=== PATIENT | female | born 1955 | race Caucasian/White ===

== ENCOUNTER → 2020-12-03 | Outpatient (CLI) | payer OTHER ==
[~2020-12-03] MED LIST: ATOR40TA70 PO; LEVO175C2 PO
--- NOTE | 2020-12-03 08:51 | Diagnostic Imaging Report ---
PROCEDURE: US Gallbladder. TECHNIQUE: Multiple real-time grayscale images were obtained over the right upper quadrant in various projections. INDICATION: Epigastric pain, nausea and vomiting. FINDINGS: The liver is normal in size without focal lesions. No biliary duct dilatation. Common bile duct measures 3 mm. There is no cholelithiasis, gallbladder wall thickening or pericholecystic fluid. Pancreas is unremarkable. Aorta is nonaneurysmal. IVC is patent. Right kidney is normal. No ascites. IMPRESSION: Unremarkable right quadrant ultrasound. Dictated by: Dictated on workstation # [id number]
== END ==
LOC: RAD 08:30
PROVIDERS: ATTEND Surgery
DX: R10.11 Right upper quadrant pain (principal); R10.13 Epigastric pain; R11.2 Nausea with vomiting, unspecified
CPT/HCPCS: 76705

== ENCOUNTER 2020-12-06 05:33 | Outpatient (RCR) | payer OTHER ==
[~2020-12-06] VITALS: Ht 149.9 cm; Wt 55.4 kg
[2020-12-08] MEDS ORDERED: PANT40TA2 PO (10:17)
== END 2020-12-06 11:08 | disposition home or self-care (01) ==
LOC: PREOP 05:33
PROVIDERS: ATTEND Surgery
DX: Z01.812 Encounter for preprocedural laboratory examination (principal); Z12.11 Encounter for screening for malignant neoplasm of colon; K21.9 Gastro-esophageal reflux disease without esophagitis; Z20.822 Contact with and (suspected) exposure to COVID-19
CPT/HCPCS: 87635

== ENCOUNTER → 2020-12-08 | Day surgery (SDC) | payer OTHER ==
--- NOTE | 2020-12-01 20:18 | HISTORY AND PHYSICAL ---
DATE OF SERVICE: DATE OF ADMISSION: 12/08/2020. ATTENDING BREAKDOWN PERSON: Rhea Frederick APRN HISTORY OF PRESENT ILLNESS: The patient is a 65-year-old female with multiple gastrointestinal symptoms. She reports that she has had epigastric pain and reflux for many years. She also reports a history of having what she states is ulcers. She is currently not on any acid reduction medications. She states that she also has developed abdominal bloating and distention as well as nausea and vomiting usually after eating meals, especially ones that are high in fat. She has not had a colonoscopy up to this point in her life as well. She also reports that spicy foods as well as acidic foods including red sauces make her epigastric pain worse as well. PAST MEDICAL HISTORY: Peptic ulcer disease, hypercholesterolemia, hypothyroid, psoriatic arthritis, Javid's thyroiditis. PAST SURGICAL HISTORY: Hysterectomy in 1982, total hysterectomy in 1993, total thyroidectomy in 2019. ALLERGIES: PHENOBARBITAL. MEDICATIONS: Levothyroxine, atorvastatin. SOCIAL HISTORY: Positive smoke 40-pack years. Negative alcohol. FAMILY HISTORY: Sister with stroke in her early 40s. VITAL SIGNS: Blood pressure 120/80, current weight 122.1 pounds, height 4 feet 11 inches. REVIEW OF SYSTEMS: Well-nourished female, in no acute distress. She is not experiencing any shortness of breath or difficulty breathing. No chest pain, palpitations, diaphoresis. Intermittent episodes of epigastric pain, abdominal bloating as well as intermittent nausea and vomiting. No hematemesis, no coffee ground emesis. She also has intermittent episodes of diarrhea, usually after meals. No red blood per rectum, no dark tarry stools. No fever, chills, no recent inadvertent weight loss. PHYSICAL EXAMINATION: CHEST: Clear. Good breath sounds bilaterally. HEART: Regular, no murmurs. EXTREMITIES: No lower extremity edema, negative Homans sign. HEENT: No scleral icterus. NECK: No cervical lymphadenopathy. ABDOMEN: Soft, nondistended. There is pain in the epigastric region on deep palpation as well as a right upper abdominal quadrant. No peritoneal signs. No hernias. SKIN: Warm, dry. ASSESSMENT AND PLAN: A 65-year-old female with a reflux esophagitis, history of peptic ulcer disease, intermittent episodes of diarrhea as well as abdominal bloating, distention and nausea and vomiting following meals. She likely has some component of reflux esophagitis as well as gastritis and we will schedule an EGD. However, she is also in need of a colonoscopy for she has not had one up to this point in her life. We will also proceed with a workup of her gallbladder with an ultrasound and if this is negative, we will then proceed with a HIDA scan to evaluate for the possibility of symptomatic biliary dyskinesia. Job ID: [id number] DocumentID: [id number] Dictated Date: 11/30/2020 17:15:49 Route Rider Supervisor Date: 11/30/2020 17:39:20 Dictated By: MELQUIADES CALZADA MD
[~2020-12-08] VITALS: Ht 149.9 cm; Wt 55.4 kg
[2020-12-08] VITALS (12 sets, daily range): BP systolic 89–175; BP diastolic 52–81
[~2020-12-08] MED LIST changes: +ACETAMINOPHEN 325 MG TABLET PO PRN; +HURRICAINE EXT TUBE (BENZOCAINE) XX PRN; +HYDROcodone/APAP 5 MG/325 MG (LORTAB) TAB PO PRN; +LIDOCAINE JELLY 2% 6 ML SYRINGE MM PRN; +MIDAZOLAM 5 MG/5 ML (VERSED) VIAL IV ONE; +NS IV 500 ML 500 ML IV PRN; +NS IV 500 ML 500 ML ONE; +ONDANSETRON 4 MG/2 ML (SDV) Z0FRAN IVP PRN; +PANT40TA2 PO; +fentaNYL INJ 100 MCG/2 ML AMP IVP ONE; +morphine INJ 10 MG/ML 1ML (SYR OR VIAL) IVP PRN
--- NOTE | 2020-12-08 10:15 | Conscious Sedation/ASA ---
Conscious Sedation Pre-Proced Time 10:00 ASA Score 2 For ASA 3 and 4: Consider anesthesia and medical clearance. Also, for patients with a history of failed moderate sedation consider anesthesia. Airway Lungs Heart ASA score ASA 1: a normal healthy patient ASA 2: a patient with a mild systemic disease (mid diabetes, controlled hypertension, obesity ASA 3: a patient with a severe systemic disease that limits activity (angina, COPD, prior Myocardial infarction) ASA 4: a patient with an incapacitating disease that is a constant threat to life (CHF, renal failure) ASA 5: a moribund patient not expected to survive 24 hrs. (ruptured aneurysm) ASA 6: a declared brain- patient whose organs are being harvested. For emergent operations, add the letter E after the classification Mallampati Classification Grade 2 Sedation Plan Analgesia, Amnesia, Plan communicated to team members, Discussed options with patient/fam, Discussed risks with patient/fam The patient is an appropriate candidate to undergo the planned procedure, sedation, and anesthesia. The patient immediately re-assessed prior to indication. MELQUIADES CALZADA MD Dec 08, 2020 10:15
--- NOTE | 2020-12-08 10:15 | Progress Note-Pre Operative ---
Pre-Operative Progress Note H&P Reviewed The H&P was reviewed, patient examined and no changes noted. Date Seen by Provider: Dec 08, 2020 Time Seen by Provider: 10:00 Date H&P Reviewed: Dec 08, 2020 Time H&P Reviewed: 10:00 Pre-Operative Diagnosis: GERD, screening o MELQUIADES CALZADA MD Dec 08, 2020 10:15
--- NOTE | 2020-12-08 10:17 | Discharge Inst-Surgical ---
D/C Lap Instructions-KIDO New, Converted, or Re-Newed RX: RX on Chart Follow Up Activity as tolerated High Fiber Diet 25g or more per day Avoid Alcohol, Caffeine, Spicy [place] and Acid foods. Drink 64 fluid oz or more of fluids per day. Symptoms to Report: Fever over 101 degree F, Nausea/Vomiting If any problems/questions: Contact your physician or go to Emergency Room MELQUIADES CALZADA MD Dec 08, 2020 10:17
--- NOTE | 2020-12-08 12:01 | Progress Note-Post Operative ---
Post-Operative Progess Note Surgeon (s)/Tile Applicator (s) Surgeon MELQUIADES CALZADA MD Tile Applicator: none Pre-Operative Diagnosis GERD, screening colo Post-Operative Diagnosis reflux esophagitis(stage 2), small HH(2cm), moderate gastritis. mild chronic stage 2 ext and int hemorrhoids. Procedure & Operative Findings Date of Procedure 12/08/20 Procedure Performed/Findings EGD with bx. colonoscopy Anesthesia Type cs Estimated Blood Loss Estimated blood loss (mL): minimal Specimens/Packing Specimens Removed ge jxn, antrum MELQUIADES CALZADA MD Dec 08, 2020 12:01
--- NOTE | 2020-12-08 18:23 | OPERATIVE REPORT ---
DATE OF SERVICE: 12/08/2020 ATTENDING PRIMARY SHOEMAKER APPRENTICE: Rhea Frederick APRN PREOPERATIVE DIAGNOSES: Gastroesophageal reflux disease, abdominal bloating and distention, screening colonoscopy. POSTOPERATIVE DIAGNOSES: Reflux esophagitis stage II, small hiatal hernia approximately 2 cm in size, moderate gastritis. Chronic stage II external and internal hemorrhoids. Remainder of the colon and rectum were normal. PROCEDURE: EGD with biopsy, colonoscopy. SURGEON: Melquiades Calzada MD ANESTHESIA: Conscious sedation. ESTIMATED BLOOD LOSS: Minimal. FINDINGS: Reflux esophagitis stage II, small hiatal hernia approximately 2 cm in size, moderate gastritis. Chronic stage II external and internal hemorrhoids. Remainder of the colon and rectum were normal. DISPOSITION: The patient tolerated the procedure well. INDICATIONS: The patient is a 65-year-old female who has had multiple gastrointestinal symptoms. She reports epigastric pain and reflux for many years; however, this has worsened and she also develops that she has had gastric ulcers in the past. She is currently not on any acid reducers. She also has developed abdominal bloating, distention as well as nausea and vomiting usually after meals, especially ones that are high in fat content. She has also not had a colonoscopy up to this point in her life. She does not report any red blood per rectum nor any dark tarry stools as well as no family history of colon cancer. DESCRIPTION OF PROCEDURE: The patient was brought to the endoscopy suite, laid in the left lateral decubitus position with head slightly elevated. After adequate IV pain, anesthetic medications and conscious sedation anesthesia, the mouthpiece was applied. The endoscope was placed in the mouth, visualized the pharynx and hypopharyngeal region. Vocal cords, epiglottis and vallecula identified and appeared to be normal. The endoscope was then gently intubated. The esophageal opening and esophagus insufflated. The endoscope was then advanced through the first, second and third portion of esophagus at the level of the GE junction, reflux esophagitis stage II identified. There were no ulcers or strictures identified in this region. A biopsy was taken of the GE junction with forceps with visualization of good hemostasis. The endoscope was then advanced in the stomach and endoscope retroflexed, visualizing a small hiatal hernia approximately 2 cm in size. There was a moderate severity gastritis more towards the stomach antrum. No formal ulcerations, polyps, or any neoplasms. A biopsy was taken of the antrum to rule out H. pylori with visualization of good hemostasis. The endoscope was then advanced to the pylorus and the first and second portion of the duodenum, which appeared normal. No distal obstructions. The endoscope was then slowly withdrawn while taking a second look and suctioning of residual air with no additional findings. A digital rectal examination was performed, which revealed chronic stage II external and internal hemorrhoids, not actively edematous nor inflamed and no bleeding. Normal sphincter tone was felt and there were no palpable masses. The endoscope was then intubated and anus and rectum gently insufflated. The endoscope was then advanced to the valves of Cristina of the rectum with no polyps or any neoplasms identified. We then proceeded through the sigmoid colon where no diverticulosis identified. We then advanced through the descending, transverse and ascending colon to the cecum, which were normal. There were no polyps or any neoplasms identified throughout the colon or rectum. The endoscope was then slowly withdrawn while taking a second look and suctioning of residual air with no additional findings. The patient tolerated the procedure well. For her reflux esophagitis, hiatal hernia and gastritis, we will start her on Protonix 40 mg daily. She will also need to proceed with the necessary lifestyle and diet accommodation including smoking cessation as well as avoidance of caffeinated beverages, spicy, greasy and acidic foods. We will also start her on Protonix 40 mg daily. We will also recommend a high fiber diet with at least 25 grams daily to promote soft stools on a daily basis. However, if she is asymptomatic from a lower gastrointestinal standpoint, she does not need another colonoscopy for another 10 years. We feel that she potentially could have a gallbladder issue and we will have her follow up in the office in 2 weeks to schedule an outpatient ultrasound as well as a possible HIDA scan for a gallbladder etiology. Job ID: [id number] DocumentID: [id number] Dictated Date: 12/08/2020 11:50:56 Ring Striker Date: 12/08/2020 18:22:39 Dictated By: MELQUIADES CALZADA MD
== END ==
LOC: ENDO 09:44
PROVIDERS: ATTEND Surgery
DX: Z12.11 Encounter for screening for malignant neoplasm of colon (principal); K21.00 Gastro-esophageal reflux disease with esophagitis, without bleeding; K44.9 Diaphragmatic hernia without obstruction or gangrene; K64.1 Second degree hemorrhoids; K29.70 Gastritis, unspecified, without bleeding; E78.00 Pure hypercholesterolemia, unspecified; E03.9 Hypothyroidism, unspecified; L40.50 Arthropathic psoriasis, unspecified; E06.3 Autoimmune thyroiditis; Z79.890 Hormone replacement therapy; Z79.899 Other long term (current) drug therapy; Z87.11 Personal history of peptic ulcer disease
CPT/HCPCS: 88305

== ENCOUNTER → 2021-01-13 | Outpatient (CLI) | payer OTHER ==
[~2021-01-13] MED LIST changes: -ACETAMINOPHEN 325 MG TABLET PO PRN; +CATHETER FLUSH 10 ML SYR IV PRN; -HURRICAINE EXT TUBE (BENZOCAINE) XX PRN; -HYDROcodone/APAP 5 MG/325 MG (LORTAB) TAB PO PRN; -LIDOCAINE JELLY 2% 6 ML SYRINGE MM PRN; -MIDAZOLAM 5 MG/5 ML (VERSED) VIAL IV ONE; -NS IV 500 ML 500 ML IV PRN; -NS IV 500 ML 500 ML ONE; -ONDANSETRON 4 MG/2 ML (SDV) Z0FRAN IVP PRN; -fentaNYL INJ 100 MCG/2 ML AMP IVP ONE; -morphine INJ 10 MG/ML 1ML (SYR OR VIAL) IVP PRN
--- NOTE | 2021-01-13 13:31 | Diagnostic Imaging Report ---
INDICATION: Right upper quadrant pain. The patient was administered 4.0 mCi technetium 99m Choletec intravenously and imaging over the abdomen was performed. After 60 minutes, the patient ingested Ensure and a gallbladder ejection fraction was calculated. There is homogeneous uptake of activity by the liver with prompt excretion of activity into the gallbladder and common duct. There is normal passage of activity into the small bowel. Gallbladder ejection fraction is 88%. IMPRESSION: Normal HIDA scan and gallbladder ejection fraction. Dictated by: Dictated on workstation # [id number]
== END ==
LOC: CARD 10:00
PROVIDERS: ATTEND Surgery
DX: R10.11 Right upper quadrant pain (principal); R11.2 Nausea with vomiting, unspecified
CPT/HCPCS: 78227

== ENCOUNTER 2021-01-20 05:52 | Outpatient (CLI) | payer OTHER ==
[~2021-01-20] VITALS: Ht 149.9 cm; Wt 56.8 kg
[~2021-01-20 05:52] MED LIST changes: -CATHETER FLUSH 10 ML SYR IV PRN
== END 2021-01-20 10:41 ==
LOC: PREOP 05:52
PROVIDERS: ATTEND Surgery
DX: Z01.818 Encounter for other preprocedural examination (principal)

== ENCOUNTER 2021-01-27 09:24 | Day surgery (SDC) | payer OTHER ==
[2021-01-27] VITALS (7 sets, daily range): BP systolic 135–161; BP diastolic 65–85
[~2021-01-27] VITALS: Ht 149 cm; Wt 56.8 kg
--- OUTSIDE RECORDS SUMMARY | 2021-01-27 09:28 | XMS REPORT | Clinical Summary ---
Author Author [facility] Organization [facility] Address Unknown Phone Unavailable Care Team Providers Care Plant Operator Control Room Operator Name Role Phone Bell Aldrich MD PCP Source Comments Some departments are not documenting in the electronic medical record. If you d o not see the information that you expected, contact Release of Information in [facility] [employer] Information Management department at [phone] for further assistan ce in locating additional records.[facility] Allergies Comments Active Allergy Reactions Severity Noted Date Fentanyl UNKNOWN Low 07/09/2020 Methotrexate UNKNOWN Low 07/09/2020 Phenobarbital RASH, ITCHING Medium 07/09/2020 Sulfasalazine HIVES Medium 07/09/2020 Medications End Date Status Medication Sig Dispensed Refills Start Date Active atorvastatin (LIPITOR) 40 Take 40 mg by 0 mg tablet mouth daily. Active HYDROcodone/acetaminophen Take 0.5 0 (NORCO) 5/325 mg tablet tablets by mouth as Needed (every few days, mostly at night) Active levothyroxine (SYNTHROID) Take 200 mcg 0 200 mcg tablet by mouth daily 30 minutes before breakfast. Active pantoprazole DR Take 40 mg by 0 (PROTONIX) 40 mg tablet mouth as Needed. Active calcium carb/vitamin Take 2 0 D3/vit K1 (VIACTIV PO) tablets by mouth daily. Active Problems Problem Noted Date Drug allergy-intolerance (phenobarbital, sulfasalazin e, fentanyl, 08/06/2020 methotrexate) Psoriasis, says patient 08/06/2020 Psoriatic arthritis, says patient 08/06/2020 PUD (peptic ulcer disease) 08/06/2020 Hypercholesterolemia 08/06/2020 Hypothyroidism, postsurgical 08/06/2020 Surgical History Surgery Date Site/Laterality Comments HX HYSTERECTOMY CERVIX LESION DESTRUCTION 05/28/1979 - 05/27/1980 THYROIDECTOMY 05/28/2018 - 05/27/2019 Medical History Medical History Date Comments Thyroid disease Arthritis H/O herpes zoster virus Psoriatic arthritis (HCC) Peripheral neuropathy Prolapse of vaginal wall Hyperlipidemia Fatigue Joint swelling Back pain Family History Medical History Relation Name Comments Heart Disease Father Hyperlipidemia Father Scleroderma Sister Relation Name Status Comments Father Mother Alive Sister Alive Social History Date Tobacco Use Types Packs/Day Years Used Current Every Day Smoker Smokeless Tobacco: Never Used Comments Alcohol Use Standard Drinks/Week Never 0 (1 standard drink = 0.6 o z pure alcohol) Alcohol Habits Answer Date Recorded How often do you have a drink containing alcohol? Never 07/30/2020 How many drinks containing alcohol do you have on No t asked a typical day when you are drinking? How often do you have six or more drinks on one Not asked occasion? Comment: Not asked Sex Assigned at Date Recorded Not on file Last Filed Vital Signs Not on file Plan of Treatment Health Maintenance Due Date Last Done Comments HIV SCREENING 1972 DTAP/TDAP VACCINES (1 - 1975 Tdap) HEPATITIS C SCREENING 1975 PHYSICAL (COMPREHENSIVE) 1975 EXAM CERVICAL CANCER SCREENING 1978 BREAST CANCER SCREENING 1997 COLORECTAL CANCER 2007 SCREENING SHINGLES RECOMBINANT 2007 VACCINE (1 of 2) INFLUENZA VACCINE 02/25/2021 Results Not on filefrom Last 3 Months Advance Directives Patient Frozen Food Department Manager Explanation Type Date Recorded Advance Directive/DPOA
[2021-01-27] MEDS ORDERED: ceFAZolin INJECTION 1,000 MG in WATER (STERILE) FOR INJECTION 10 ML IV ONE (09:45)
--- NOTE | 2021-01-27 09:45 | Progress Note-Pre Operative ---
Pre-Operative Progress Note H&P Reviewed The H&P was reviewed, patient examined and no changes noted. Date Seen by Provider: Jan 27, 2021 Time Seen by Provider: 09:45 Date H&P Reviewed: Jan 27, 2021 Time H&P Reviewed: 09:40 Pre-Operative Diagnosis: Symptomatic biliary dyskinesia KACEY TREVINO APRN Jan 27, 2021 09:45
[2021-01-27] MEDS ORDERED: HYDR-3817 PO (09:47)
--- NOTE | 2021-01-27 09:48 | Discharge Inst-Surgical ---
D/C Lap Instructions-KIDO Reconcile Patient Problems Problems Reviewed?: Yes New, Converted, or Re-Newed RX: RX on Chart Follow Up Appt in 2 weeks Activity as tolerated No driving for 24 hours No driving while on pain medications Incentive Spirometry use every 2 hours while awake Regular Diet Symptoms to Report: Fever over 101 degree F, Nausea/Vomiting Infection Signs and Symptoms to report: Increased redness, Foul odor of wound, Increased drainage Bathing instructions: May shower Operative Area Clean/Dry; Keep incision clean/dry If any problems/questions: Contact your physician or go to Emergency Room KACEY TREVINO APRN Jan 27, 2021 09:48
[2021-01-27] MEDS ORDERED: HYDROcodone/APAP 5 MG/325 MG (LORTAB) TAB PO ONE (10:00)
[2021-01-27] MEDS ORDERED: ONDANSETRON 4 MG/2 ML (SDV) Z0FRAN IVP PRN ×2 (10:00→12:45)
[2021-01-27] MEDS ORDERED: ACETAMINOPHEN 325 MG TABLET PO PRN (10:00)
[2021-01-27] MEDS ORDERED: morphine INJ 10 MG/ML 1ML (SYR OR VIAL) IVP PRN (10:00)
[2021-01-27] MEDS ORDERED: LIDOCAINE/EPI 1%-1:100,000 (XYLOCAINE) 20ML ONE (10:03)
[2021-01-27] MEDS: LACTATED RINGERS 1,000 ML IV PRN ×2 (10:29→12:05)
[2021-01-27] MEDS ORDERED: LIDOCAINE PF 2% 5 ML (XYLOCAINE) VIAL ONE (10:36)
[2021-01-27] MEDS ORDERED: fentaNYL INJ 100 MCG/2 ML AMP ONE (10:36)
[2021-01-27] MEDS ORDERED: proPOfol 200 MG/20 ML (DIPRIVAN) VIAL IV ONE (10:36)
[2021-01-27] MEDS ORDERED: ONDANSETRON 4 MG/2 ML (SDV) Z0FRAN ONE (10:36)
[2021-01-27] MEDS ORDERED: SEVOFLURANE (ULTANE) 15 ML INHAL SOLN ONE (10:36)
[2021-01-27] MEDS ORDERED: MIDAZOLAM 2 MG/2 ML (VERSED) VIAL ONE ×2 (10:37→10:52)
[2021-01-27] MEDS ORDERED: MIDAZOLAM 2 MG/2 ML (VERSED) VIAL IVP ONE (11:00)
[2021-01-27] MEDS ORDERED: ROCURONIUM 10 MG/ML 5 ML SYRINGE IV ONE (12:17)
[2021-01-27] MEDS ORDERED: SUGAMMADEX 500 MG/5 ML VIAL (BRIDION) IV ONE (12:18)
--- NOTE | 2021-01-27 12:26 | Progress Note-Post Operative ---
Post-Operative Progess Note Surgeon (s)/Board Of Education Secretary (s) Surgeon MELQUIADES CALZADA MD Board Of Education Secretary: gurvinder sierra CATTLE DIPPER Pre-Operative Diagnosis Symptomatic biliary dyskinesia Post-Operative Diagnosis chronic calculous cholecystitis Procedure & Operative Findings Date of Procedure 01/27/21 Procedure Performed/Findings laparoscopic cholecystectomy Anesthesia Type get Estimated Blood Loss Estimated blood loss (mL): minimal Specimens/Packing Specimens Removed gallbladder MELQUIADES CALZADA MD Jan 27, 2021 12:26
[2021-01-27] MEDS: fentaNYL INJ 100 MCG/2 ML AMP IVP ONE ×2 (12:49→12:51)
--- NOTE | 2021-01-27 13:24 | Anesthesia-General Post-Op ---
General Patient Condition Mental Status/LOC: Same as Preop Cardiovascular: Satisfactory Nausea/Vomiting: Absent Respiratory: Satisfactory Pain: Controlled Complications: Absent Post Op Complications Complications None Follow Up Care/Instructions Patient Instructions None needed. Anesthesia/Patient Condition Patient Condition Patient is doing well, no complaints, stable vital signs, no apparent adverse anesthesia problems. No complications reported per nursing. D/C home per [facility] Criteria: Yes LEAH PARRISH CRNA Jan 27, 2021 13:24
--- NOTE | 2021-01-27 17:46 | OPERATIVE REPORT ---
DATE OF SERVICE: 01/27/2021 ATTENDING PRIMARY ORDNANCE ENGINEERING TECHNICIAN: Rhea Frederick APRN. PREOPERATIVE DIAGNOSIS: Symptomatic biliary dyskinesia. POSTOPERATIVE DIAGNOSIS: Chronic calculous cholecystitis. PROCEDURE PERFORMED: Laparoscopic cholecystectomy. SURGEON: Melquiades Calzada MD. CASSEROLE PREPARER: Roderick Reyna APRN. ANESTHESIA: General endotracheal. ESTIMATED BLOOD LOSS: Minimal. FINDINGS: Multiple small gallstones. No gallbladder wall thickening. DISPOSITION: The patient tolerated the procedure well. INDICATIONS FOR PROCEDURE: The patient is a 65-year-old female with multiple gastrointestinal symptoms. She reports epigastric pain and reflux for many years and this had worsened. On 12/08/2020, she underwent an EGD and colonoscopy and was found to have a reflux esophagitis stage II, hiatal hernia 2 cm in size, and moderate gastritis as well as hemorrhoids. She reports that she has had issues with nausea and abdominal bloating usually after eating meals. She initially underwent an ultrasound, which was unremarkable and then this was followed by a HIDA scan, which showed a normal ejection fraction; however, during the administration of Kinevac analogue, she did have reproduction of symptoms with nausea and abdominal bloating. DESCRIPTION OF PROCEDURE: The patient was brought to the operating room and laid supine on the table. After adequate IV pain and sedative medications and general endotracheal intubation, the abdomen was prepped and draped in a standard surgical fashion. A 0.5% Marcaine with epinephrine was then used to anesthetize the overlying skin in the left upper abdominal quadrant and a transverse skin incision was made using a 15 blade. A 0 silk suture was applied to the medial aspect of the incision for retraction and a Veress needle inserted with a low opening pressure of 0 mmHg. The abdomen was then insufflated to 15 mmHg pressure. The Veress needle was removed and a 5 mm XL trocar was placed followed by a 5 mm 45-degree angle laparoscope visualizing the peritoneal cavity. A four-quadrant abdominal exploration was performed. There was a mild gallbladder wall distention, no gallbladder wall thickening. Under direct visualization, we then proceeded to place a supraumbilical 10 mm port after the skin and peritoneal lining were anesthetized using 0.5% Marcaine with epinephrine and a transverse skin incision was made using 15 blade. In a similar manner, a right upper abdominal quadrant 5 mm port was placed. The patient was then placed in a reverse Trendelenburg position as well as plane right side up, left side down. The fundus of the gallbladder was then retracted anteriorly and superiorly. The hepatoduodenal ligament was then dissected open using a blunt dissection as well as electrocautery on the hook instrument as well as a [place] dissector. The entire critical view of safety was identified including the triangle of Calot as well as the cystic duct and artery as the only two structures going into the gallbladder as well as the cystic plate behind the proximal gallbladder. A timeout was then taken and the cystic duct and artery were then clipped proximally and distally and cut with EndoShears. The gallbladder was then dissected off the liver bed using electrocautery and the hook instrument with visualization of good hemostasis as well as no leaking ducts of Luschka. The gallbladder was removed through the 10 mm port site using an EndoCatch bag. The 10 mm port site fascia and peritoneum were then closed under direct visualization using a Vicente-Ojlly device and 0 Vicryl suture. The abdomen was desufflated and remaining ports removed. All skin incisions were closed using 4-0 Monocryl running subcuticular sutures. Wounds were then cleaned and covered with Dermabond. The patient tolerated the procedure well. We will start IV normal pain medication as well as a clear liquid diet. When she is tolerating clears, has good pain control with oral pain medications, and ambulating well, we will discharge her home. She will be instructed to do no heavy lifting or exertion for the next two weeks. Job ID: [id number] DocumentID: [id number] Dictated Date: 01/27/2021 12:27:41 Brim Edge Trimmer Date: 01/27/2021 17:44:45 Dictated By: MELQUIADES CALZADA MD
== END 2021-01-27 13:45 | disposition home or self-care (01) ==
LOC: SDC 09:24
PROVIDERS: ATTEND Surgery
DX: K80.10 Calculus of gallbladder with chronic cholecystitis without obstruction (principal); K82.8 Other specified diseases of gallbladder; I10 Essential (primary) hypertension; F17.210 Nicotine dependence, cigarettes, uncomplicated; L40.50 Arthropathic psoriasis, unspecified; K21.9 Gastro-esophageal reflux disease without esophagitis; E78.00 Pure hypercholesterolemia, unspecified; E03.9 Hypothyroidism, unspecified; E06.3 Autoimmune thyroiditis; K27.9 Peptic ulcer, site unspecified, unspecified as acute or chronic, without hemorrhage or perforation; Z79.899 Other long term (current) drug therapy; Z79.890 Hormone replacement therapy
CPT/HCPCS: 87081

== ENCOUNTER 2022-09-28 05:36 | Outpatient (CLI) | payer MEDICARE, MEDICAID ==
[~2022-09-28] VITALS: Ht 147.3 cm; Wt 57.3 kg
[~2022-09-28 05:36] MED LIST changes: +HYDR-3817 PO
== END 2022-09-28 13:38 | disposition home or self-care (01) ==
LOC: PREOP 05:36
PROVIDERS: ATTEND Surgery
DX: Z01.818 Encounter for other preprocedural examination (principal)

== ENCOUNTER 2022-10-18 09:36 | Day surgery (SDC) | payer MEDICARE, MEDICAID ==
--- NOTE | 2022-09-29 16:41 | HISTORY AND PHYSICAL ---
DATE OF SERVICE: 10/04/2022 Date of admission will be 10/04/2022. ATTENDING AIR AND WATER FILLER: [facility]. HISTORY OF PRESENT ILLNESS: The patient is a 67-year-old female known to us. She has had multiple gastrointestinal issues including epigastric pain and reflux as well as a history of peptic ulcer disease in the past. At that time, she had reported that she had been taking eryk-xqi-vzkuvxn acid reducers with not much relief. She was also in need of a colonoscopy and on 12/08/2020, she underwent EGD and colonoscopy. Findings included a reflux esophagitis, Grady grade B, hiatal hernia approximately 2 cm in size and moderate gastritis. Biopsies were negative for Stanley's esophagus and H. pylori. The patient continued to have symptoms, then we had undergone gallbladder testing including an ultrasound, which did not show any gallstones; however, HIDA scan was performed and it was in a normal range; however, during the Kinevac analog she did have reproduction of symptoms consistent with biliary dyskinesia. This was performed in 01/2021. She reports that over the past 2 years, she has had worsening epigastric pain, increased bloating as well as intermittent episodes of nausea and infrequent emesis; however, she has had frequent episodes of regurgitation, usually after eating a meal. She does not report any hematemesis, no coffee-ground emesis. She was started on pantoprazole initially; however, did stop at some point. PAST MEDICAL HISTORY: Gastroesophageal reflux disease. Hiatal hernia, peptic ulcer disease, hypercholesterolemia, hypothyroid, psoriatic arthritis, Javid's thyroiditis, fibromyalgia. PAST SURGICAL HISTORY: Partial hysterectomy 1982, completion nephrectomy 1993, tonsillectomy, total thyroidectomy 2018, laparoscopic cholecystectomy 01/2021. ALLERGIES: PHENOBARBITAL, SULFA. MEDICATIONS: Atorvastatin daily, levothyroxine daily. SOCIAL HISTORY: Positive smoke 40 pack years, negative alcohol. FAMILY HISTORY: Her sister with DVT and cerebrovascular accident. Father, myocardial infarction. VITAL SIGNS: Blood pressure 130/60. Current weight 126.1 pounds at 4 feet 10 inches. REVIEW OF SYSTEMS: A well-nourished female, currently in no acute distress. She is not experiencing any shortness of breath or difficulty breathing. No chest pain, palpitations, diaphoresis. No nausea, vomiting with intermittent episodes of regurgitation usually after eating meals and increased intra-abdominal pressure. No hematemesis, no coffee-ground emesis. No known diarrhea, no constipation, no red blood per rectum, no dark tarry stools. No fever, chills, no recent inadvertent weight loss. All other review of systems negative. PHYSICAL EXAMINATION: CHEST: Distant breath sounds and scattered wheezes bilaterally. HEART: Regular. No murmurs. EXTREMITIES: No lower extremity edema. Negative Homans sign. HEENT: No scleral icterus. No cervical lymphadenopathy. ABDOMEN: Soft, nondistended. There is pain in the epigastric region upon deep palpation. No peritoneal signs. No hernias. SKIN: Warm, dry. ASSESSMENT AND PLAN: A 67-year-old female with worsening gastroesophageal reflux type of symptoms with known history of hiatal hernia. We will schedule her for followup EGD to reevaluate her upper gastrointestinal tract as well as to reevaluate the size of the hiatal hernia. We will also again proceed with biopsies for Stanley's esophagus as well as H pylori. Job ID: [id number] DocumentID: [id number] Dictated Date: 09/26/2022 15:33:28 [employer] Date: 09/26/2022 15:57:00 Dictated By: MELQUIADES CALZADA MD
[~2022-10-18] VITALS: Ht 147.3 cm; Wt 57.3 kg
[2022-10-18] MEDS ORDERED: LACTATED RINGERS 1,000 ML IV STA (09:38)
[2022-10-18] MEDS ORDERED: LIDOCAINE JELLY 2% 6 ML SYRINGE MM PRN (09:45)
[2022-10-18] MEDS ORDERED: HURRICAINE EXT TUBE (BENZOCAINE) XX PRN (09:45)
[2022-10-18 10:30] VITALS: BP 140/86
[2022-10-18] MEDS ORDERED: PROPOFOL INJECTION 50 ML IV ONE (11:23)
[2022-10-18] MEDS ORDERED: LIDOCAINE JELLY 2% 6 ML SYRINGE ONE (11:45)
[2022-10-18 12:20] VITALS: BP 99/54
[2022-10-18 12:25] VITALS: BP 88/50
[2022-10-18 12:30] VITALS: BP 129/82
--- NOTE | 2022-10-18 12:31 | Progress Note-Pre Operative ---
Pre-Operative Progress Note Date of Available H&P: October 18, 2022 Date H&P Reviewed: October 18, 2022 Time H&P Reviewed: 10:30 History & Physical: No changes noted Pre-Operative Diagnosis: GERD MELQUIADES CALZADA MD October 18, 2022 12:31
--- NOTE | 2022-10-18 12:33 | Progress Note-Post Operative ---
Post-Operative Progess Note Surgeon (s)/Imaging Science Professor (s) Surgeon MELQUIADES CALZADA MD Imaging Science Professor: none Pre-Operative Diagnosis GERD Post-Operative Diagnosis reflux esophagitis(grade B-C), mild dist esoph stricture, moderate HH(2.5cm), mod gastritis. Procedure & Operative Findings Date of Procedure 10/18/22 Procedure Performed/Findings EGD with bx Anesthesia Type get Estimated Blood Loss Estimated blood loss (mL): minimal Specimens/Packing Specimens Removed ge jxn, antrum MELQUIADES CALZADA MD October 18, 2022 12:33
[2022-10-18] MEDS ORDERED: OMEP40CA6 PO (12:34)
--- NOTE | 2022-10-18 12:34 | Discharge Inst-Surgical ---
D/C Lap Instructions-KIDO New, Converted, or Re-Newed RX: RX on Chart Follow Up PRN Activity as tolerated High Fiber Diet 25g or more per day Avoid Alcohol, Caffeine, Spicy [place] and Acid foods. Drink 64 fluid oz or more of fluids per day. Symptoms to Report: Fever over 101 degree F, Nausea/Vomiting If any problems/questions: Contact your physician or go to Emergency Room MELQUIADES CALZADA MD October 18, 2022 12:34
[2022-10-18 12:35] VITALS: BP 129/82
--- NOTE | 2022-10-18 12:39 | Anesthesia-General Post-Op ---
MAC Patient Condition Mental Status/LOC: Same as Preop Cardiovascular: Satisfactory Nausea/Vomiting: Absent Respiratory: Satisfactory Pain: Controlled Complications: Absent Post Op Complications Complications None Follow Up Care/Instructions Patient Instructions None needed. Anesthesiology Discharge Order Discharge Order Patient is awake and doing well, no complaints, stable vital signs, no apparent adverse anesthesia problems. No complications reported per nursing. XIOMY KELLY DO October 18, 2022 12:39
[2022-10-18] MEDS ORDERED: ONDANSETRON 4 MG/2 ML (SDV) Z0FRAN IVP PRN (12:45)
[2022-10-18] MEDS ORDERED: ONDANSETRON 4 MG (ZOFRAN) ORAL DISSOLVE TAB PO PRN (12:45)
[2022-10-18 14:04] VITALS: BP 129/82
--- NOTE | 2022-10-18 18:48 | OPERATIVE REPORT ---
DATE OF SERVICE: 10/18/2022 ATTENDING PRIMARY DIRECTOR OF ENTERTAINMENT: [facility]. PREOPERATIVE DIAGNOSES: Gastroesophageal reflux disease, regurgitation. POSTOPERATIVE DIAGNOSES: Reflux esophagitis, Dougherty between grade B and C with a mild distal esophageal stricture, moderate size hiatal hernia approximately 2.5 cm in size. Moderate gastritis. PROCEDURE: EGD with biopsy and balloon dilatation. SURGEON: Melquiades Calzada MD ANESTHESIA: Monitored anesthesia care. ESTIMATED BLOOD LOSS: Minimal. FINDINGS: Reflux esophagitis, Dougherty between grade B and C with a mild distal esophageal stricture, moderate size hiatal hernia approximately 2.5 cm in size. Moderate gastritis. DISPOSITION: The patient tolerated the procedure well. INDICATIONS: The patient is a 67-year-old female known to us. She has had multiple gastrointestinal issues including epigastric pain and reflux as well as a history of peptic ulcer disease; however, does have a major risk factor, which encompasses smoking for greater than 40 pack years. She has tried a number of different ptza-ovn-[id number] acid reducers with not much relief. On her last EGD, she was found to have a hiatal hernia approximately 2 cm in size as well as a reflux esophagitis. She was also found to have biliary dyskinesia and is status post cholecystectomy on 01/2021. This time around, she reports that she has been having worsening epigastric pain, bloating, intermittent episodes of nausea as well as regurgitation and sometimes dysphagia. She was on Protonix at some point; however, states that she stopped this at some point. DESCRIPTION OF PROCEDURE: The patient was brought to the endoscopy suite and laid in the left lateral decubitus position. After adequate IV pain and sedative medications and monitored anesthesia care, the mouthpiece was applied. The endoscope was placed in the mouth, visualizing the pharynx and hypopharyngeal region. Vocal cords, epiglottis and vallecula identified and appeared to be normal. The endoscope was then gently intubated in the esophageal opening and esophagus insufflated. The endoscope was then advanced through the first, second, third portions of esophagus at the level of the GE junction, a reflux esophagitis Dougherty between grade B and C identified as well as a mild distal esophageal stricture. Biopsy was taken with forceps with visualization of good hemostasis. The GE junction was also intrathoracic consistent with a hiatal hernia. The endoscope was then advanced into the stomach. The endoscope retroflexed visualizing a small to moderate size hiatal hernia approximately 2.5-3 cm in size. There was a moderate severity gastritis, more towards the stomach antrum. No formal ulcerations, polyps or any neoplasms. A biopsy was taken of the antrum to rule out H. pylori with visualization of good hemostasis. The endoscope was then advanced to the pylorus and the first and second portion of the duodenum with no distal obstructions. The balloon was then placed in the stomach and pulled back to the area of the stricture. We then proceeded with graded dilatation from 2, 4, then eventually 6 atmospheres of pressure, 20 mm in luminal diameter with moderate resistance and left this in place for approximately 60 seconds. The balloon was then desufflated and removed with visualization of good hemostasis as well as no mucosal tears. The endoscope was then slowly withdrawn while taking a second look and suctioning of residual air with no additional findings. The patient tolerated the procedure well. She will need to proceed with the necessary lifestyle and dietary accommodation, which first and foremost encompassing smoking cessation; however, also things like avoidance of caffeinated beverages, spicy, greasy and acidic foods. She also needs to take in small and more frequent meals and avoidance of eating at night. We will also start her on omeprazole 40 mg daily. Job ID: [id number] DocumentID: [id number] Dictated Date: 10/18/2022 12:24:58 Price Lister Date: 10/18/2022 18:45:00 Dictated By: MELQUIADES CALZADA MD
== END 2022-10-18 13:00 | disposition home or self-care (01) ==
LOC: ENDO 09:36
PROVIDERS: ATTEND Surgery
DX: K21.00 Gastro-esophageal reflux disease with esophagitis, without bleeding (principal); K22.2 Esophageal obstruction; K44.9 Diaphragmatic hernia without obstruction or gangrene; K29.70 Gastritis, unspecified, without bleeding; K31.89 Other diseases of stomach and duodenum; Z87.11 Personal history of peptic ulcer disease; F17.210 Nicotine dependence, cigarettes, uncomplicated